=== PATIENT | female | born 1995 | race Caucasian/White ===

== ENCOUNTER 2018-01-24 19:45 | Emergency (ER) | payer OTHER ==
[~2018-01-24] VITALS: Ht 157.5 cm; Wt 77.1 kg
[~2018-01-24 19:45] MED LIST: HYDACE5 PO; Norco 5-325 Ta1 EACH PO
[2018-01-24] MEDS ORDERED: Triamcinolone A15 G3 TOP (21:27)
== END 2018-01-24 21:32 | disposition home or self-care (01) ==
LOC: ER 19:45
DX: L25.9 Unspecified contact dermatitis, unspecified cause (principal); F17.200 Nicotine dependence, unspecified, uncomplicated
CPT/HCPCS: 99282

== ENCOUNTER → 2018-07-15 | Outpatient (CLI) | payer OTHER ==
[~2018-07-15] MED LIST changes: +Triamcinolone A15 G3 TOP
== END ==
LOC: LAB SHORT 17:33 → LAB 17:33
PROVIDERS: Registered Nurse Community Health
DX: Z12.4 Encounter for screening for malignant neoplasm of cervix (principal)
CPT/HCPCS: G0123